=== PATIENT | male | born 1985 | race Caucasian/White ===

== ENCOUNTER 2022-06-15 12:07 | Observation (INO) | payer OTHER, SELFPAY ==
[2022-06-15] MEDS ORDERED: Lorazepam (BATCHED) 2 MG/ML SYR ONE (12:32)
[2022-06-15] MEDS ORDERED: Ondansetron PF 4 MG/2 ML Vial ONE ×2 (12:32→16:50)
[2022-06-15] MEDS ORDERED: Morphine 4 MG/ML VIAL ONE ×2 (12:32→16:50)
[2022-06-15 13:03] LABS: #Basophils 0.1 thou/uL (0.0-0.2); #Eosinphils 0.2 thou/uL (0.0-0.7); #Lymphocytes 3.1 thou/uL (1.20-3.40); #Monocytes 1.1 thou/uL (0.11-0.59); #Neutrophils 6.5 thou/uL (1.40-6.50); %Basophils 1.3 % (0.0-1.0); %Eosinophils 1.4 % (0.0-10.0); %Monocytes 10.2 % (0.0-10.0); %Neutrophils 59.1 % (42.0-75.0); Hemoglobin 16.4 g/dL (14.0-18.0); Mean Corpuscular HGB CONC 34.5 g/dL (32.0-36.0); Mean Corpuscular Hemoglobin 30.4 pg (27.0-31.0); Mean Corpuscular Volume 88.1 fL (78.0-98.0); Mean Platelet Volume 10.1 fL (7.4-10.4); Platelet Count 270 thou/uL (130-400); RBC Distribution Width 11.7 % (11.5-14.5); Red Blood Cell (RBC) Count 5.39 mill/uL (4.70-6.10); White Blood Cell (WBC) Count 10.9 thou/uL (4.8-10.8)
[2022-06-15] MEDS ORDERED: HYDROmorphone 0.5 MG/0.5 ML SYRINGE ONE (13:12)
[2022-06-15 14:07] LABS: ALT (SGPT) 80 U/L (8-55); AST (SGOT) 59 U/L (5-34); Albumin 4.8 g/dL (3.5-5.0); Alkaline Phosphatase 74 U/L (40-110); Anion Gap 16 mmol/L (10-20); BUN (Urea Nitrogen) 15 mg/dL (8.9-20.6); Bilirubin, Total 0.8 mg/dL (0.2-1.2); Calc. Creatinine Clearance 0 mL/min (70-130); Calcium 10.3 mg/dL (7.8-10.44); Carbon Dioxide 25 mmol/L (22-29); Chloride 104 mmol/L (98-107); Estimated GFR 98; Glucose 127 mg/dL (70-105); Potassium 3.7 mmol/L (3.5-5.1); Protein, Total 7.8 g/dL (6.0-8.3); Sodium 141 mmol/L (136-145)
[2022-06-15] MEDS ORDERED: tiZANidine HCl 4 MG TAB PO SCH ×2 (17:00→19:45)
[2022-06-15] MEDS ORDERED: Ondansetron PF 4 MG/2 ML Vial IVP PRN (19:22)
[2022-06-15] MEDS ORDERED: Ondansetron ODT 4 MG TAB PO PRN (19:22)
[2022-06-15 19:46] VITALS: BMI 31.1
[2022-06-15] MEDS: Ketorolac Tromethamine 30 MG/ML VIAL IVP SCH (19:52)
[2022-06-15] MEDS: Lactated Ringer's 1,000 ML IV SCH (21:22)
[2022-06-16] MEDS ORDERED: Morphine 2 MG/ML VIAL SLOW IVP PRN (00:37)
[2022-06-16] MEDS ORDERED: HYDROcodone/Acetaminophen 5/325 mg Tablet PO PRN (00:39)
[2022-06-16] MEDS: Lorazepam 1 MG TAB PO PRN ×2 (01:07→09:54)
[2022-06-16] MEDS: Ketorolac Tromethamine 30 MG/ML VIAL IVP SCH ×3 (02:36→12:17)
[2022-06-16] MEDS: Lactated Ringer's 1,000 ML IV SCH ×3 (02:37→12:17)
[2022-06-16] MEDS ORDERED: HYDROcodone/Acetaminophen 10/325 mg Tablet PO PRN ×2 (05:11)
[2022-06-16 06:19] LABS: ALT (SGPT) 71 U/L (8-55); AST (SGOT) 47 U/L (5-34); Albumin 4.9 g/dL (3.5-5.0); Alkaline Phosphatase 71 U/L (40-110); Bilirubin, Direct 0.4 mg/dL (0.1-0.3); Bilirubin, Total 1.3 mg/dL (0.2-1.2); Protein, Total 7.9 g/dL (6.0-8.3)
[2022-06-16] MEDS: tiZANidine HCl 4 MG TAB PO SCH ×3 (07:56→17:18)
[2022-06-16] MEDS ORDERED: Lisinopril/Hydrochlorothiazide 20/25 mg Tablet PO SCH (09:00)
[2022-06-16] MEDS ORDERED: diphenhydrAMINE 50 MG/ML VIAL IVP PRN (11:19)
[2022-06-16 12:47] VITALS: BP 151/84; TEMP 97.8
== END 2022-06-16 18:21 | disposition home or self-care (01) ==
LOC: ERS 12:07 → T4-B 17:26
PROVIDERS: ADMIT Family Medicine; ATTEND Family Medicine
DX: T63.311A Toxic effect of venom of black widow spider, accidental (unintentional), initial encounter (principal); R10.31 Right lower quadrant pain; U07.1 COVID-19; I10 Essential (primary) hypertension; Z79.899 Other long term (current) drug therapy
CPT/HCPCS: 36415; 71045; 80053; 80076; 82550; 84484; 85025; 93005; 94760; 96361; 96374; 96375; 96376; G0378; J1170; J1200; J1885; J2060; J2270; J2405; J7120; Q0162; U0003; U0005